=== PATIENT | male | born 2000 | race Caucasian/White ===

== ENCOUNTER 2023-04-05 06:02 | Emergency (ER) | payer BC ==
[~2023-04-05] VITALS: Ht 170.2 cm; Wt 63.9 kg
[2023-04-05 06:15] VITALS: O2SAT 98
[2023-04-05 06:39] VITALS: BP 126/75; PULSE 66; RESP 16
[2023-04-05] MEDS ORDERED: KETOROLAC 60MG/2ML VIAL IM ONE (06:45)
[2023-04-05] MEDS ORDERED: TOPUD PO (07:51)
== END 2023-04-05 08:08 | disposition home or self-care (01) ==
LOC: ER 06:16
DX: M79.18 Myalgia, other site (principal); E11.9 Type 2 diabetes mellitus without complications
CPT/HCPCS: 96372; 99283; J1885; Z7610